=== PATIENT | female | born 1960 | race Caucasian/White ===

== ENCOUNTER 2016-09-18 12:06 | Day surgery (SDC) | payer OTHER ==
[2016-09-18] VITALS (10 sets, daily range): BP systolic 114–162; BP diastolic 57–125; PULSE 50–62; RESP 14–35; Ht 162.6 cm; Wt 70.0 kg
[~2016-09-18] VITALS: Ht 162.6 cm; Wt 70.0 kg
[~2016-09-18 12:06] MED LIST: CEFAZOLIN 2 GM/50 ML (PMX) 50 ML IVPB ONE; SOD CHLORIDE 0.9% 1,000 ML IV SCH
[2016-09-18] MEDS ORDERED: BENA20TA48 PO (12:34)
--- NOTE | 2016-09-18 12:58 | RADRPT ---
PROCEDURE: XR Chest 1 View. CLINICAL INDICATION: Abnormal breath sounds, preop. TECHNIQUE: AP view of the chest was obtained. COMPARISON: None. FINDINGS: The cardiomediastinal silhouette is within normal limits. The lungs are hyperexpanded. No consolidat ions are identified. No pneumothorax is seen. Osseous structures are intact. IMPRESSION: Hyperexpanded, clear lungs. RPTAT: AA .Daryl Hernandez MD, MD Date Time Electronically viewed and signed by .Daryl Hernandez MD, on 09/18/2016 12:57 .P/
[2016-09-18 13:03] LABS: ADD SCAN DIFF NO
[2016-09-18 13:18] LABS: BASOPHILS % 0.4 % (0.0-2.0); EOSINOPHILS # 0.3 10^3/ul (0.0-0.5); EOSINOPHILS % 4.8 % (0.0-7.0); HEMATOCRIT 36.9 % (37.0-47.0); HEMOGLOBIN 12.6 g/dl (12.0-16.0); LYMPHOCYTES # 2.3 10^3/ul (0.8-2.9); LYMPHOCYTES % 33.6 % (15.0-51.0); MEAN CORPUSCULAR HEMOGLOBIN 32.5 pg (29.0-33.0); MEAN CORPUSCULAR HGB CONC 34.1 g/dl (32.0-37.0); MEAN CORPUSCULAR VOLUME 95.1 fl (82.0-101.0); MEAN PLATELET VOLUME 11.6 fl (7.4-10.4); MONOCYTE # 0.5 10^3/ul (0.3-0.9); MONOCYTES % 7.2 % (0.0-11.0); NEUTROPHIL # 3.6 10^3/ul (1.6-7.5); NEUTROPHILS % 53.7 % (39.0-77.0); PLATELET COUNT 249 10^3/UL (140-415); RED BLOOD COUNT 3.88 10^6/ul (4.20-5.40); RED CELL DISTRIBUTION WIDTH 14.1 % (11.5-14.5); WHITE BLOOD COUNT 6.7 10^3/ul (4.8-10.8)
[2016-09-18 13:24] LABS: ALBUMIN 4.5 g/dl (3.3-4.9); ALBUMIN/GLOBULIN RATIO 1.32; BILIRUBIN,INDIRECT 0.9 mg/dl (0-1.1); BILIRUBIN,TOTAL 0.9 mg/dl (0.2-1.3); TOTAL PROTEIN 7.9 g/dl (6.1-8.1)
[2016-09-18 13:25] LABS: CALCIUM 9.5 mg/dl (8.4-10.2); CREATININE 0.78 mg/dl (0.44-1.00); POTASSIUM 5.2 mmol/L (3.5-5.1)
[2016-09-18] MEDS ORDERED: BUPIVACAINE 0.25% (MPF) 30 ML INJ ONE (13:46)
[2016-09-18 13:49] LABS: INR 0.96; PROTIME 12.8 Sec (12.2-14.2)
[2016-09-18] MEDS ORDERED: FENTAnyl 50 MCG/ML VIAL ONE (14:16)
[2016-09-18] MEDS ORDERED: PROPOFOL 20 ML ONE (14:16)
[2016-09-18] MEDS ORDERED: MIDAZOLAM 1 MG/ML 2 ML INJ ONE (14:16)
[2016-09-18] MEDS ORDERED: KETOROLAC 30 MG INJ ONE (14:30)
[2016-09-18] MEDS ORDERED: DEXAMETHASONE 4 MG/ML 1 ML INJ ONE (14:30)
[2016-09-18] MEDS ORDERED: ONDANSETRON 4 MG INJ ONE (14:30)
[2016-09-18] MEDS ORDERED: METOCLOPRAMIDE 10 MG INJ ONE (14:30)
[2016-09-18] MEDS ORDERED: CEFAZOLIN 1 GM INJ ONE (14:30)
--- NOTE | 2016-09-18 14:56 | OPR ---
Date/Time of Note Date/Time of Note DATE: 09/18/16 TIME: 14:52 Operative Report Procedure Date: Sep 18, 2016 Preoperative Diagnosis left gluteal mass x 2 Postoperative Diagnosis same Operation Performed excision of left superior gluteal mass 6 cm incision 5 cm mass excision of left inferior gluteal mass 5 cm incision 4 cm mass localized adjacent tissue transfer with the use of skin flaps 22 sq cm defect therapeutic injection of subcutaneous marcaine cpt code 23751 Surgeon: Keshia NOVAK Specimens left gluteal superior and inferior masses Procedure Description Patient is taken to the OR and prepped and draped in usual sterile fashion surgical timeout was performed IV antibiotics again transverse incision is made over the left superior gluteal mass dissection cautery was carried out circumferentially around the mass is good hemostasis due to the tissue defect localization since transfer with these skin flaps was performed multilayer closure with interrupted 3-0 Vicryl and skin sydney local anesthesia is injected attention is paid to the left inferior gluteal mass transverse incision was made over the left inferior gluteal mass dissection because could not circumference around the vas there is good hemostasis. Due to tissue defect localized dehiscence is transferred to the skin flaps was performed multilayer closure with interrupted 3-0 Vicryl and skin sydney local anesthesia injected dressings applied and states that physician Keshia NOVAK Sep 18, 2016 14:56
[2016-09-18] MEDS ORDERED: morphine (1 MG/ML) 10ML SYRINGE IV PRN ×3 (15:00)
[2016-09-18] MEDS ORDERED: MEPERIDINE 25 MG INJ IV PRN (15:00)
[2016-09-18] MEDS ORDERED: hydrALAzine 20 MG INJ IV PRN (15:00)
[2016-09-18] MEDS ORDERED: HYDROCODONE/APAP (5/325) TAB PO ONE (15:00)
[2016-09-18] MEDS ORDERED: METOCLOPRAMIDE 10 MG INJ IV PRN (15:00)
[2016-09-18] MEDS ORDERED: DIPHENHYDRAMINE 50 MG INJ IV PRN (15:00)
[2016-09-18] MEDS ORDERED: ONDANSETRON 4 MG INJ IV PRN (15:00)
[2016-09-18] MEDS ORDERED: LABETALOL HCL 20MG INJ IV PRN (15:00)
[2016-09-18] MEDS ORDERED: HYDROmorphONE (0.2 MG/ML) 10ML SYG IV PRN ×3 (15:00)
[2016-09-18] MEDS ORDERED: EPHEDrine SULFATE 50 MG/5 ML SYG IV PRN (15:00)
== END 2016-09-18 16:40 | disposition home or self-care (01) ==
LOC: SDS 12:06
PROVIDERS: ATTEND Surgery
DX: D17.1 Benign lipomatous neoplasm of skin and subcutaneous tissue of trunk (principal); I10 Essential (primary) hypertension
CPT/HCPCS: 14001; 71010; 80053; 84703; 85025; 85610; 85730; 88307; J0690; J1100; J1885; J2250; J2405; J2765; J3010; Z7512; Z7610